=== PATIENT | female | born 1955 | race Caucasian/White ===

== ENCOUNTER 2020-12-30 23:52 | Emergency (ER) | payer BC ==
[~2020-12-30] VITALS: Ht 162.6 cm; Wt 225.0 kg
[~2020-12-30 23:52] MED LIST: AMLO5TAB4 PO; COR3.125T PO; HYDR-4353 PO; MELA3TAB39 PO; VALS1TAB73 PO
[2020-12-31 00:54] LABS: EOSINOPHILS # (AUTO) 0.4 X10'3 (0-0.9); MONOCYTES # (AUTO) 0.9 X10'3 (0-0.9)
[2020-12-31 00:56] LABS: BASOPHILS # (AUTO) 0.1 X10'3 (0-0.2); BASOPHILS % (AUTO) 1.3 % (0-1); EOSINOPHILS % (AUTO) 3.9 % (0-6); HEMATOCRIT 47.5 % (35.0-45.0); LYMPHOCYTES # (AUTO) 2.2 X10'3 (1.1-4.8); MEAN CORPUSCULAR HGB CONC 33.7 g/dL (33.0-36.5); MEAN PLATELET VOLUME 8.6 FL (7.4-10.4); MONOCYTES % (AUTO) 9.7 % (2-12); NEUTROPHILS # (AUTO) 5.8 X10'3 (1.8-7.7); NEUTROPHILS % (AUTO) 62.1 % (42-75); PLATELET COUNT 206 X10'3 (140-440); RED BLOOD COUNT 5.53 X10'6 (4.20-5.60); RED CELL DISTRIBUTION WIDTH 13.8 % (11.5-14.5); WHITE BLOOD COUNT 9.4 X10'3 (4.5-11.0)
[2020-12-31 01:09] LABS: ALANINE AMINOTRANSFERASE 56 U/L (12-78); ALBUMIN 3.7 G/DL (3.4-5.0); ALBUMIN/GLOBULIN RATIO 0.9 (1.1-1.5); ALKALINE PHOSPHATASE 87 IU/L (46-116); ANION GAP 8 (8-16); ASPARTATE AMINO TRANSFERASE 32 U/L (10-37); BILIRUBIN,TOTAL 0.2 MG/DL (0.1-1.0); BLOOD UREA NITROGEN 22 MG/DL (7-18); BUN/CREATININE RATIO 29.7 (6.6-38.0); CALCIUM 9.4 MG/DL (8.5-10.1); CHLORIDE 104 MMOL/L (99-107); CREATININE 0.74 MG/DL (0.40-0.90); GLUCOSE 140 MG/DL (70-104); POTASSIUM 4.2 MMOL/L (3.5-5.1); SODIUM 140 MMOL/L (135-145); eGFR 79 ML/MIN
--- NOTE | 2020-12-31 01:52 | NUR ---
Per patient's request, her Alireza was contacted with update. [phone].
[2020-12-31] MEDS ORDERED: HYDROcodone/acetaminophen 10/325mg tab PO ONE (02:35)
[2020-12-31] MEDS ORDERED: HYDROmorphone 1 mg/ml syringe IM ONE (03:15)
[2020-12-31 03:45] VITALS: BP_DIAS 134
[2020-12-31] MEDS ORDERED: amLODIPine 5mg tablet PO ONE (04:00)
[2020-12-31 04:05] VITALS: BP_SYST 209
--- NOTE | 2020-12-31 04:05 | NUR ---
Dr. Gonzalez notified of persistent hypertension as charted. MD ordered medication. Importance of follow up w/PMD emphasized with patient.
[2020-12-31] MEDS ORDERED: CARV3.122 PO (11:48)
[2020-12-31] MEDS ORDERED: VALA500T41 PO (11:48)
== END 2020-12-31 04:27 | disposition home or self-care (01) ==
LOC: ER 23:53
DX: R06.4 Hyperventilation (principal); G25.81 Restless legs syndrome; R20.0 Anesthesia of skin; I25.10 Atherosclerotic heart disease of native coronary artery without angina pectoris; I10 Essential (primary) hypertension; I25.2 Old myocardial infarction; G89.29 Other chronic pain; Z98.890 Other specified postprocedural states; Z79.899 Other long term (current) drug therapy
CPT/HCPCS: 70450; 71045; 80053; 83880; 84484; 85025; 93005; 96372; 99285; J1170

== ENCOUNTER 2020-12-31 09:44 | Inpatient (IN) | payer BC ==
[~2020-12-31] VITALS: Ht 162.6 cm; Wt 102.0 kg
[2020-12-31] MEDS ORDERED: iohexol 350MG/ML 100ml bottle IV ONE (10:04)
[2020-12-31] MEDS ORDERED: atorvastatin 20mg tablet PO SCH (10:45)
[2020-12-31] MEDS ORDERED: aspirin 81mg tab.chew PO ONE (10:45)
[2020-12-31] MEDS ORDERED: clopidogrel 300mg tablet PO ONE (10:45)
[2020-12-31] MEDS ORDERED: HYDROcodone/acetaminophen 10/325mg tab PO ONE (11:30)
[2020-12-31] MEDS ORDERED: potassium Cl 40MEQ/1/2NS 520ml 520 ML IV PRN ×2 (11:35)
[2020-12-31] MEDS ORDERED: potassium Cl 20 mEq SR tablet PO PRN ×2 (11:35)
[2020-12-31] MEDS ORDERED: magnesium 2GM in 50ml NS 50 ML IV PRN (11:35)
[2020-12-31] MEDS ORDERED: HYDROcodone/acetaminophen 5mg/325mg tablet PO PRN (11:35)
[2020-12-31] MEDS ORDERED: acetaminophen 325mg tablet PO PRN ×2 (11:35)
[2020-12-31] MEDS ORDERED: mag hydrox/Alum hydrox/simeth 30ml oral suspension PO PRN (11:35)
[2020-12-31] MEDS ORDERED: magnesium 4gm in 100ml NS 100 ML IV PRN (11:35)
[2020-12-31] MEDS ORDERED: magnesium hydroxide 30ml (MOM) UD suspension PO PRN (11:35)
[2020-12-31] MEDS ORDERED: CARV3.122 PO (11:48)
[2020-12-31] MEDS ORDERED: VALA500T41 PO (11:48)
--- NOTE | 2020-12-31 12:49 | NUR ---
ECHO IN ROOM FOR EXAM
--- NOTE | 2020-12-31 13:36 | NUR ---
PAGER ID: [phone] MESSAGE: [id number] [facility] SAW [facility] ORDER FOR PERMISSIVE HTN, BUT BP HAS BEEN 245/131 AND 239/121
[2020-12-31] MEDS ORDERED: carVEDilol 3.125mg tablet PO ONE (13:40)
[2020-12-31] MEDS: HYDROcodone/acetaminophen 10/325mg tab PO PRN ×3 (15:00→23:09)
[2020-12-31 16:25] VITALS: BP 186/115
--- NOTE | 2020-12-31 16:25 | NUR ---
Pt transferred from ER to 3018b via gurney to bed. Pt awake and alert. VSS. Pt reported chronic back pain as well as acute arm and leg weakness/heaviness bilaterally. Neuro exam completed and WNL. [place] recently given for pain in ER.
[2020-12-31] MEDS ORDERED: morphine 2 MG/ML inj. syringe IV PRN (17:35)
[2020-12-31] MEDS: morphine 2 MG/ML inj. syringe IV PRN (17:54)
[2020-12-31 18:00] VITALS: BP 195/135
[2020-12-31] MEDS: ondansetron/PF 4mg/2ml inj IV PRN (19:46)
[2020-12-31 20:00] VITALS: BP 195/135
[2020-12-31] MEDS: K and/or MAG REPLACEMENT MC SCH (20:00)
[2020-12-31] MEDS: LIDOcaine 5% patch TP SCH (21:38)
[2020-12-31 22:00] VITALS: BP 223/115
--- NOTE | 2020-12-31 22:34 | NUR ---
PAGER ID: [phone] MESSAGE: [id number] , MICHELLE TONY BP 230/150 MANUAL BP MEDICATIONS FOR HTN ARE COREG 3.125MG , NOTHING PRN PATIENT HERE FOR A STROKE R/O BAL HIDALGO 3618
[2020-12-31 22:35] VITALS: BP 230/150
[2020-12-31] MEDS: cloNIDine 0.1 mg tablet PO PRN (23:09)
[2021-01-01] VITALS (9 sets, daily range): BP systolic 176–225; BP diastolic 85–121
[2021-01-01] MEDS: ondansetron/PF 4mg/2ml inj IV PRN ×2 (01:42→19:55)
[2021-01-01] MEDS: morphine 2 MG/ML inj. syringe IV PRN ×3 (01:42→19:55)
[2021-01-01] MEDS: cloNIDine 0.1 mg tablet PO PRN (02:55)
[2021-01-01] MEDS: HYDROcodone/acetaminophen 10/325mg tab PO PRN ×2 (04:13→08:13)
--- NOTE | 2021-01-01 04:50 | NUR ---
PAGER ID: [phone] MESSAGE: [id number] scarlett Platt complaining of 10/10 right lower extremity pain. she is receiving morphine iv 2mg q4h as well as [place] 10mg q4h with no relieve at this time. may I get a one time order for in between thanks Robin khanna .
[2021-01-01 06:41] LABS: BASOPHILS # (AUTO) 0.1 X10'3 (0-0.2); BASOPHILS % (AUTO) 0.7 % (0-1); EOSINOPHILS # (AUTO) 0.2 X10'3 (0-0.9); EOSINOPHILS % (AUTO) 2.3 % (0-6); HEMOGLOBIN 15.9 g/dl (12.0-16.0); LYMPHOCYTES # (AUTO) 1.7 X10'3 (1.1-4.8); MEAN CORPUSCULAR HEMOGLOBIN 29.2 PG (27.0-31.0); MEAN CORPUSCULAR HGB CONC 33.7 g/dL (33.0-36.5); MEAN CORPUSCULAR VOLUME 86.6 FL (78-98); MEAN PLATELET VOLUME 8.5 FL (7.4-10.4); MONOCYTES # (AUTO) 1.2 X10'3 (0-0.9); MONOCYTES % (AUTO) 11.2 % (2-12); NEUTROPHILS # (AUTO) 7.4 X10'3 (1.8-7.7); NEUTROPHILS % (AUTO) 69.8 % (42-75); PLATELET COUNT 214 X10'3 (140-440); RED BLOOD COUNT 5.43 X10'6 (4.20-5.60); RED CELL DISTRIBUTION WIDTH 13.7 % (11.5-14.5); WHITE BLOOD COUNT 10.7 X10'3 (4.5-11.0)
[2021-01-01 06:54] LABS: ALANINE AMINOTRANSFERASE 58 U/L (12-78); ALBUMIN 3.8 G/DL (3.4-5.0); ALBUMIN/GLOBULIN RATIO 0.9 (1.1-1.5); ALKALINE PHOSPHATASE 68 IU/L (46-116); ANION GAP 9 (8-16); ASPARTATE AMINO TRANSFERASE 48 U/L (10-37); BILIRUBIN,TOTAL 0.6 MG/DL (0.1-1.0); BLOOD UREA NITROGEN 21 MG/DL (7-18); BUN/CREATININE RATIO 23.6 (6.6-38.0); CALCIUM 9.6 MG/DL (8.5-10.1); CHLORIDE 101 MMOL/L (99-107); CHOL/HDL RATIO 4.8 (0.00-4.99); CHOLESTEROL 223 MG/DL (0-200); CREATININE 0.89 MG/DL (0.40-0.90); GLUCOSE 143 MG/DL (70-104); HDL CHOLESTEROL 46 MG/DL (35-60); LDL CHOLESTEROL 147 MG/DL (50-100); MAGNESIUM 2.3 MG/DL (1.5-2.4); POTASSIUM 3.8 MMOL/L (3.5-5.1); SODIUM 137 MMOL/L (135-145); TOTAL PROTEIN 7.9 G/DL (6.4-8.2); TRIGLYCERIDES 140 MG/DL (20-135); eGFR 64 ML/MIN
[2021-01-01] MEDS: atorvastatin 20mg tablet PO SCH (07:43)
[2021-01-01] MEDS: clopidogrel 75mg tablet PO SCH (07:43)
[2021-01-01] MEDS: aspirin 81mg tablet.DR PO SCH (07:43)
[2021-01-01] MEDS: valacyclovir 500mg tablet PO SCH (08:00)
[2021-01-01] MEDS: K and/or MAG REPLACEMENT MC SCH ×2 (08:00→19:57)
[2021-01-01] MEDS ORDERED: LORazepam 2 mg/ml vial IV ONE (09:35)
[2021-01-01] MEDS ORDERED: oxyCODONE/APAP 5-325mg tablet PO PRN (09:35)
--- NOTE | 2021-01-01 11:29 | NUR ---
patient was taking nap after mri, patient seems to have sleurred speech and right facial droop and increased waekness on the right side right when she wakes up.
[2021-01-01] MEDS: oxyCODONE/APAP 10/325mg tablet PO PRN ×3 (14:24→22:28)
--- NOTE | 2021-01-01 18:20 | NUR ---
Problems reprioritized. Patient report given, questions answered & plan of care reviewed with Devin HIDALGO.
[2021-01-01] MEDS: LIDOcaine 5% patch TP SCH (19:56)
[2021-01-02] MEDS: morphine 2 MG/ML inj. syringe IV PRN ×3 (00:13→22:52)
[2021-01-02 02:00] VITALS: BP 175/100
[2021-01-02] MEDS: oxyCODONE/APAP 10/325mg tablet PO PRN ×3 (02:24→14:42)
[2021-01-02 06:00] VITALS: BP 178/106
[2021-01-02 06:39] LABS: BASOPHILS # (AUTO) 0.1 X10'3 (0-0.2); BASOPHILS % (AUTO) 0.9 % (0-1); EOSINOPHILS # (AUTO) 0.2 X10'3 (0-0.9); EOSINOPHILS % (AUTO) 2.5 % (0-6); HEMATOCRIT 44.9 % (35.0-45.0); HEMOGLOBIN 15.3 g/dl (12.0-16.0); LYMPHOCYTES # (AUTO) 2.2 X10'3 (1.1-4.8); LYMPHOCYTES % (AUTO) 23.7 % (21-51); MEAN CORPUSCULAR HEMOGLOBIN 29.2 PG (27.0-31.0); MEAN CORPUSCULAR VOLUME 85.9 FL (78-98); MEAN PLATELET VOLUME 8.5 FL (7.4-10.4); MONOCYTES # (AUTO) 1.1 X10'3 (0-0.9); MONOCYTES % (AUTO) 11.8 % (2-12); NEUTROPHILS # (AUTO) 5.6 X10'3 (1.8-7.7); NEUTROPHILS % (AUTO) 61.1 % (42-75); PLATELET COUNT 204 X10'3 (140-440); RED BLOOD COUNT 5.23 X10'6 (4.20-5.60); RED CELL DISTRIBUTION WIDTH 13.5 % (11.5-14.5); WHITE BLOOD COUNT 9.2 X10'3 (4.5-11.0)
--- NOTE | 2021-01-02 06:46 | NUR ---
Patient in room PCU 3018. I have received report from Devin HIDALGO and had the opportunity to ask questions and assume patient care.
[2021-01-02 06:55] LABS: ALANINE AMINOTRANSFERASE 61 U/L (12-78); ALBUMIN 3.6 G/DL (3.4-5.0); ALBUMIN/GLOBULIN RATIO 0.9 (1.1-1.5); ALKALINE PHOSPHATASE 70 IU/L (46-116); ANION GAP 8 (8-16); ASPARTATE AMINO TRANSFERASE 45 U/L (10-37); BILIRUBIN,TOTAL 0.5 MG/DL (0.1-1.0); BLOOD UREA NITROGEN 24 MG/DL (7-18); BUN/CREATININE RATIO 22.4 (6.6-38.0); CALCIUM 9.8 MG/DL (8.5-10.1); CHLORIDE 103 MMOL/L (99-107); CREATININE 1.07 MG/DL (0.40-0.90); GLUCOSE 118 MG/DL (70-104); MAGNESIUM 2.4 MG/DL (1.5-2.4); POTASSIUM 4.2 MMOL/L (3.5-5.1); SODIUM 138 MMOL/L (135-145); TOTAL CARBON DIOXIDE 27.3 MMOL/L (24-32); TOTAL PROTEIN 7.6 G/DL (6.4-8.2); eGFR 52 ML/MIN
[2021-01-02] MEDS: clopidogrel 75mg tablet PO SCH (07:29)
[2021-01-02] MEDS: aspirin 81mg tablet.DR PO SCH (07:30)
[2021-01-02] MEDS: atorvastatin 20mg tablet PO SCH (07:30)
[2021-01-02] MEDS: valacyclovir 500mg tablet PO SCH (07:31)
[2021-01-02] MEDS: LIDOcaine 5% patch TP SCH ×2 (07:33→07:56)
[2021-01-02] MEDS: HYDROmorphone inj. 0.5 MG/0.5 ML DISP.SYRIN IV PRN ×4 (07:57→20:51)
[2021-01-02] MEDS: K and/or MAG REPLACEMENT MC SCH ×2 (08:00→20:00)
[2021-01-02 11:40] VITALS: BP 184/99
[2021-01-02 15:00] VITALS: BP 192/84
[2021-01-02 18:00] VITALS: BP 184/111
[2021-01-02] MEDS: ondansetron/PF 4mg/2ml inj IV PRN (19:15)
[2021-01-02 22:00] VITALS: BP 185/107
[2021-01-03] MEDS: HYDROmorphone inj. 0.5 MG/0.5 ML DISP.SYRIN IV PRN ×3 (00:47→10:29)
[2021-01-03] MEDS: ondansetron/PF 4mg/2ml inj IV PRN (00:47)
[2021-01-03 02:00] VITALS: BP 148/77
[2021-01-03] MEDS: oxyCODONE/APAP 10/325mg tablet PO PRN ×2 (03:30→07:44)
[2021-01-03 06:00] VITALS: BP 132/69
[2021-01-03] MEDS: valacyclovir 500mg tablet PO SCH (07:39)
[2021-01-03] MEDS: aspirin 81mg tablet.DR PO SCH (07:39)
[2021-01-03] MEDS: atorvastatin 20mg tablet PO SCH (07:39)
[2021-01-03] MEDS: clopidogrel 75mg tablet PO SCH (07:40)
[2021-01-03] MEDS: K and/or MAG REPLACEMENT MC SCH ×2 (08:00→19:17)
[2021-01-03 08:06] LABS: BASOPHILS # (AUTO) 0.1 X10'3 (0-0.2); BASOPHILS % (AUTO) 0.8 % (0-1); EOSINOPHILS # (AUTO) 0.1 X10'3 (0-0.9); EOSINOPHILS % (AUTO) 1.3 % (0-6); HEMATOCRIT 47.9 % (35.0-45.0); LYMPHOCYTES # (AUTO) 1.9 X10'3 (1.1-4.8); LYMPHOCYTES % (AUTO) 18.4 % (21-51); MEAN CORPUSCULAR HEMOGLOBIN 29.4 PG (27.0-31.0); MEAN CORPUSCULAR HGB CONC 33.3 g/dL (33.0-36.5); MEAN CORPUSCULAR VOLUME 88.2 FL (78-98); MEAN PLATELET VOLUME 8.9 FL (7.4-10.4); MONOCYTES # (AUTO) 1.2 X10'3 (0-0.9); MONOCYTES % (AUTO) 11.2 % (2-12); NEUTROPHILS # (AUTO) 7.1 X10'3 (1.8-7.7); NEUTROPHILS % (AUTO) 68.3 % (42-75); PLATELET COUNT 202 X10'3 (140-440); RED BLOOD COUNT 5.43 X10'6 (4.20-5.60); RED CELL DISTRIBUTION WIDTH 13.9 % (11.5-14.5); WHITE BLOOD COUNT 10.4 X10'3 (4.5-11.0)
[2021-01-03 08:30] LABS: ALANINE AMINOTRANSFERASE 65 U/L (12-78); ALBUMIN 3.7 G/DL (3.4-5.0); ALBUMIN/GLOBULIN RATIO 0.9 (1.1-1.5); ALKALINE PHOSPHATASE 72 IU/L (46-116); ANION GAP 10 (8-16); ASPARTATE AMINO TRANSFERASE 52 U/L (10-37); BILIRUBIN,TOTAL 0.5 MG/DL (0.1-1.0); BLOOD UREA NITROGEN 26 MG/DL (7-18); BUN/CREATININE RATIO 33.8 (6.6-38.0); CALCIUM 9.9 MG/DL (8.5-10.1); CHLORIDE 103 MMOL/L (99-107); CREATININE 0.77 MG/DL (0.40-0.90); GLUCOSE 108 MG/DL (70-104); MAGNESIUM 2.3 MG/DL (1.5-2.4); POTASSIUM 4.2 MMOL/L (3.5-5.1); SODIUM 140 MMOL/L (135-145); TOTAL CARBON DIOXIDE 27.1 MMOL/L (24-32); TOTAL PROTEIN 7.9 G/DL (6.4-8.2); eGFR 75 ML/MIN
--- NOTE | 2021-01-03 10:53 | NUR ---
PAGER ID: [phone] MESSAGE: [id number] Layo Richards Can we increase her percocet 2x 10mg q6hr and get rid of her IV dilaudid . Pt is now taking it by clock when its available not because she hurts . #[phone] Alicja (177 character message out of a maximum of 240) CLOSE [X] SEND ANOTHER PAGE
[2021-01-03 11:00] VITALS: BP 173/74
[2021-01-03] MEDS ORDERED: oxyCODONE IR 5mg (immed. release) tablet PO PRN (11:35)
--- NOTE | 2021-01-03 12:54 | NUR ---
Spoke with patients primary care Dr Posada guest relations receptionist Tiffanie at length about treatment and plan of care. Tiffanie said she was going to call her who she takes care of and give him an update. Patients phone is working so she can call these family members also.
--- NOTE | 2021-01-03 13:48 | NUR ---
promotional table spacer PAGER ID: [phone] MESSAGE: [id number], Giulia. Daughter is able to answer phone at this time, said voicemail was broke up and couldn't hear you. [phone] Thanks Aury
[2021-01-03] MEDS: baclofen 10mg tablet PO PRN (16:49)
[2021-01-03 17:14] VITALS: BP 123/71
[2021-01-03 18:00] VITALS: BP 223/119
[2021-01-03] MEDS: oxyCODONE IR 5mg (immed. release) tablet PO PRN ×2 (18:07→23:53)
--- NOTE | 2021-01-03 18:22 | NUR ---
Problems reprioritized. Patient report given, questions answered & plan of care reviewed with Sofia HIDALGO.
[2021-01-03] MEDS: cloNIDine 0.1 mg tablet PO PRN (18:58)
[2021-01-03] MEDS: carVEDilol 3.125mg tablet PO SCH (19:35)
[2021-01-03 22:00] VITALS: BP 149/83
[2021-01-04 02:00] VITALS: BP 150/97
--- NOTE | 2021-01-04 02:40 | NUR ---
Patient in room PCU 3018. I have received report from Sofia HIDALGO and had the opportunity to ask questions and assume patient care. I agree with all documentation that Sofia HIDALGO has made.
--- NOTE | 2021-01-04 02:46 | NUR ---
Report given to Felicita HIDALGO.
[2021-01-04] MEDS: oxyCODONE IR 5mg (immed. release) tablet PO PRN ×4 (04:36→20:37)
[2021-01-04 06:00] VITALS: BP 171/85
[2021-01-04 06:27] LABS: BASOPHILS # (AUTO) 0.1 X10'3 (0-0.2); BASOPHILS % (AUTO) 1.1 % (0-1); EOSINOPHILS # (AUTO) 0.3 X10'3 (0-0.9); EOSINOPHILS % (AUTO) 3.1 % (0-6); HEMOGLOBIN 16.3 g/dl (12.0-16.0); LYMPHOCYTES # (AUTO) 2.1 X10'3 (1.1-4.8); LYMPHOCYTES % (AUTO) 21.8 % (21-51); MEAN CORPUSCULAR HEMOGLOBIN 28.9 PG (27.0-31.0); MEAN CORPUSCULAR HGB CONC 33.3 g/dL (33.0-36.5); MEAN CORPUSCULAR VOLUME 86.8 FL (78-98); MEAN PLATELET VOLUME 8.6 FL (7.4-10.4); MONOCYTES # (AUTO) 1.1 X10'3 (0-0.9); MONOCYTES % (AUTO) 11.7 % (2-12); NEUTROPHILS # (AUTO) 5.9 X10'3 (1.8-7.7); NEUTROPHILS % (AUTO) 62.3 % (42-75); PLATELET COUNT 217 X10'3 (140-440); RED BLOOD COUNT 5.65 X10'6 (4.20-5.60); RED CELL DISTRIBUTION WIDTH 13.7 % (11.5-14.5); WHITE BLOOD COUNT 9.4 X10'3 (4.5-11.0)
--- NOTE | 2021-01-04 06:37 | NUR ---
Problems reprioritized. Patient report given, questions answered & plan of care reviewed with Reagan HIDALGO.
[2021-01-04 06:48] LABS: ALANINE AMINOTRANSFERASE 70 U/L (12-78); ALBUMIN 3.9 G/DL (3.4-5.0); ALKALINE PHOSPHATASE 79 IU/L (46-116); ANION GAP 9 (8-16); ASPARTATE AMINO TRANSFERASE 52 U/L (10-37); BILIRUBIN,TOTAL 0.6 MG/DL (0.1-1.0); BLOOD UREA NITROGEN 27 MG/DL (7-18); BUN/CREATININE RATIO 30.7 (6.6-38.0); CALCIUM 9.7 MG/DL (8.5-10.1); CHLORIDE 102 MMOL/L (99-107); CREATININE 0.88 MG/DL (0.40-0.90); GLUCOSE 113 MG/DL (70-104); MAGNESIUM 2.3 MG/DL (1.5-2.4); POTASSIUM 4.1 MMOL/L (3.5-5.1); SODIUM 140 MMOL/L (135-145); TOTAL CARBON DIOXIDE 29.5 MMOL/L (24-32); eGFR 65 ML/MIN
[2021-01-04] MEDS: K and/or MAG REPLACEMENT MC SCH ×2 (08:00→20:00)
[2021-01-04] MEDS: clopidogrel 75mg tablet PO SCH (08:57)
[2021-01-04] MEDS: valacyclovir 500mg tablet PO SCH (08:57)
[2021-01-04] MEDS: aspirin 81mg tablet.DR PO SCH (08:57)
[2021-01-04] MEDS: atorvastatin 20mg tablet PO SCH (08:57)
[2021-01-04] MEDS: carVEDilol 3.125mg tablet PO SCH ×2 (08:57→20:37)
[2021-01-04] MEDS: LIDOcaine 5% patch TP SCH (08:57)
[2021-01-04] MEDS: ondansetron/PF 4mg/2ml inj IV PRN (08:58)
[2021-01-04] MEDS: cloNIDine 0.1 mg tablet PO PRN (08:58)
[2021-01-04 11:00] VITALS: BP 181/100
--- NOTE | 2021-01-04 13:25 | NUR ---
Initial: Pt admit DX acute CVA w/ R side weakness currently improving, hypertensive emergency r/t CVA, and hyperlipidemia per DO note. TG 140, Cholesterol 223, and LDL 147 on admit receiving lipitor as well as heart healthy diet. PO improving to 50% avg meals up to 100% two meals from initial refusals. Advanced to heart healthy/thin diet per [facility] NURSE/DO recs. Will send soft to chew foods/chopped meats given R side weakness for ease of PO; dietary notified. Noted LBM 12/31 and receiving PRN oxycodone; would benefit from routine bowel care this admit if MD agreeable. Will continue to monitor for PO tolerance and additional protein/kcal needs this admit. Rec: 1. continue heart healthy/thin diet per [facility] NURSE/DO; soft to chew foods/chopped meats for ease of PO w/ R side weakness 2. monitor for ONS needs if PO declines 3. routine bowel care; 4 days constipation receiving PRN oxycodone 4. scaled wt this admit Addendum: 01/04/21 at [address] Amended: Links added.
[2021-01-04 15:00] VITALS: BP 173/97
[2021-01-04] MEDS ORDERED: amLODIPine 5mg tablet PO ONE (18:45)
[2021-01-04 20:30] VITALS: BP 180/83
[2021-01-04 22:00] VITALS: BP 128/70
--- NOTE | 2021-01-05 00:54 | NUR ---
Student documentation: I have reviewed and agree with all interventions, assessments performed and documented by Carolina FUENTES. Student Medication Administration: For this medication-pass time frame, all medication were reviewed, dispensed, administered and documented per hospital policy by Carolina FUENTES.
[2021-01-05] MEDS: oxyCODONE IR 5mg (immed. release) tablet PO PRN ×6 (01:11→23:35)
[2021-01-05 02:00] VITALS: BP 175/105
[2021-01-05 06:00] VITALS: BP 151/74
--- NOTE | 2021-01-05 06:27 | NUR ---
Report given to Kathy HIDALGO.
--- NOTE | 2021-01-05 06:39 | NUR ---
Patient in room PCU 3018. I have received report from Amna Black and had the opportunity to ask questions and assume patient care.
[2021-01-05 06:51] LABS: BASOPHILS # (AUTO) 0.1 X10'3 (0-0.2); EOSINOPHILS # (AUTO) 0.5 X10'3 (0-0.9); EOSINOPHILS % (AUTO) 4.7 % (0-6); HEMATOCRIT 45.1 % (35.0-45.0); HEMOGLOBIN 15.1 g/dl (12.0-16.0); LYMPHOCYTES # (AUTO) 2.1 X10'3 (1.1-4.8); LYMPHOCYTES % (AUTO) 20.7 % (21-51); MEAN CORPUSCULAR HEMOGLOBIN 29.1 PG (27.0-31.0); MEAN CORPUSCULAR HGB CONC 33.5 g/dL (33.0-36.5); MEAN CORPUSCULAR VOLUME 86.9 FL (78-98); MEAN PLATELET VOLUME 8.7 FL (7.4-10.4); MONOCYTES # (AUTO) 1.4 X10'3 (0-0.9); MONOCYTES % (AUTO) 13.5 % (2-12); NEUTROPHILS # (AUTO) 6.2 X10'3 (1.8-7.7); NEUTROPHILS % (AUTO) 60.1 % (42-75); PLATELET COUNT 199 X10'3 (140-440); RED BLOOD COUNT 5.19 X10'6 (4.20-5.60); RED CELL DISTRIBUTION WIDTH 13.4 % (11.5-14.5); WHITE BLOOD COUNT 10.3 X10'3 (4.5-11.0)
[2021-01-05 07:12] LABS: ALANINE AMINOTRANSFERASE 66 U/L (12-78); ALBUMIN 3.4 G/DL (3.4-5.0); ALBUMIN/GLOBULIN RATIO 0.9 (1.1-1.5); ALKALINE PHOSPHATASE 70 IU/L (46-116); ANION GAP 7 (8-16); ASPARTATE AMINO TRANSFERASE 47 U/L (10-37); BILIRUBIN,TOTAL 0.4 MG/DL (0.1-1.0); BLOOD UREA NITROGEN 30 MG/DL (7-18); BUN/CREATININE RATIO 34.1 (6.6-38.0); CHLORIDE 102 MMOL/L (99-107); CREATININE 0.88 MG/DL (0.40-0.90); GLUCOSE 101 MG/DL (70-104); MAGNESIUM 2.4 MG/DL (1.5-2.4); POTASSIUM 4.1 MMOL/L (3.5-5.1); SODIUM 138 MMOL/L (135-145); TOTAL CARBON DIOXIDE 29.3 MMOL/L (24-32); TOTAL PROTEIN 7.1 G/DL (6.4-8.2); eGFR 65 ML/MIN
[2021-01-05] MEDS: valacyclovir 500mg tablet PO SCH (08:00)
[2021-01-05] MEDS: K and/or MAG REPLACEMENT MC SCH ×2 (08:00→18:51)
[2021-01-05] MEDS: LIDOcaine 5% patch TP SCH (08:00)
[2021-01-05] MEDS: atorvastatin 20mg tablet PO SCH (08:13)
[2021-01-05] MEDS: clopidogrel 75mg tablet PO SCH (08:13)
[2021-01-05] MEDS: aspirin 81mg tablet.DR PO SCH (08:13)
[2021-01-05] MEDS: amLODIPine 5mg tablet PO SCH (08:14)
[2021-01-05] MEDS: carVEDilol 3.125mg tablet PO SCH ×2 (08:19→19:37)
[2021-01-05 11:00] VITALS: BP 151/88
[2021-01-05 15:00] VITALS: BP 166/81
--- NOTE | 2021-01-05 15:00 | NUR ---
Jamel Consult: Jamel Camacho; skin intact per EMR. Addendum: 01/05/21 at [address] Amended: Links added.
[2021-01-05 18:00] VITALS: BP 143/92
--- NOTE | 2021-01-05 18:34 | NUR ---
Problems reprioritized. Patient report given, questions answered & plan of care reviewed with GWEN Anderson.
[2021-01-05 22:00] VITALS: BP 157/72
[2021-01-06] MEDS: oxyCODONE IR 5mg (immed. release) tablet PO PRN ×3 (04:42→13:28)
--- NOTE | 2021-01-06 06:11 | NUR ---
Problems reprioritized. Patient report given, questions answered & plan of care reviewed with GWEN French.
--- NOTE | 2021-01-06 06:15 | NUR ---
Patient in room PCU 3018. I have received report from GWEN Anderson and had the opportunity to ask questions and assume patient care.
[2021-01-06 07:00] VITALS: BP 148/74
--- NOTE | 2021-01-06 07:01 | NUR ---
Documented Oxy IR not done to due not being the primary nurse at this time of reassessment.
[2021-01-06] MEDS: LIDOcaine 5% patch TP SCH (08:00)
[2021-01-06] MEDS: K and/or MAG REPLACEMENT MC SCH (08:00)
[2021-01-06] MEDS: carVEDilol 3.125mg tablet PO SCH (09:24)
[2021-01-06] MEDS: aspirin 81mg tablet.DR PO SCH (09:24)
[2021-01-06] MEDS: amLODIPine 5mg tablet PO SCH (09:25)
[2021-01-06] MEDS: clopidogrel 75mg tablet PO SCH (09:26)
[2021-01-06] MEDS: atorvastatin 20mg tablet PO SCH (09:26)
[2021-01-06] MEDS ORDERED: docusate sod 100mg capsule PO SCH (11:05)
[2021-01-06] MEDS: baclofen 10mg tablet PO PRN (12:01)
--- NOTE | 2021-01-06 12:58 | NUR ---
Per primary nurse, patient leaving today to [facility] No issues or concerns for wound care at this time.
[2021-01-06 13:21] VITALS: BP 142/74
--- NOTE | 2021-01-06 14:00 | NUR ---
[place] documentation: I have reviewed and agree with all interventions, assessments performed and documented by GWEN Estevez.
--- NOTE | 2021-01-06 14:05 | NUR ---
Patient stable for transfer to [facility] per MD orders. All belongings were collected and sent with patient and [facility] personnel. PIV discontinued, cannula intact. Tele discontinued, telemetry rn notified. Called report to SHANI Sanchez at [facility]. Dalton Ornelas picked pt up and transferred to [facility].
--- NOTE | 2021-01-06 14:28 | NUR ---
[place] Medication Administration: For this medication-pass time frame, all medication were reviewed, dispensed, administered and documented per hospital policy by GWEN Estevez.
== END 2021-01-06 14:03 | DRG 65 ==
LOC: ER 09:44 → ED HOLD 11:34 → PCU 3S 16:33
PROVIDERS: ADMIT Family Medicine; ATTEND Family Medicine
PROC: B3251ZZ Computerized Tomography (CT Scan) of Bilateral Common Carotid Arteries using Low Osmolar Contrast (ICD-10-PCS; principal; 2020-12-31)
PROC: B32G1ZZ Computerized Tomography (CT Scan) of Bilateral Vertebral Arteries using Low Osmolar Contrast (ICD-10-PCS; 2020-12-31)
PROC: B3281ZZ Computerized Tomography (CT Scan) of Bilateral Internal Carotid Arteries using Low Osmolar Contrast (ICD-10-PCS; 2020-12-31)
DX: I63.81 Other cerebral infarction due to occlusion or stenosis of small artery (principal); G81.91 Hemiplegia, unspecified affecting right dominant side; I16.1 Hypertensive emergency; F41.9 Anxiety disorder, unspecified; G25.81 Restless legs syndrome; I10 Essential (primary) hypertension; M21.371 Foot drop, right foot; G89.29 Other chronic pain; E78.5 Hyperlipidemia, unspecified; M54.9 Dorsalgia, unspecified; Z20.822 Contact with and (suspected) exposure to COVID-19; I25.10 Atherosclerotic heart disease of native coronary artery without angina pectoris; I25.2 Old myocardial infarction; Z79.02 Long term (current) use of antithrombotics/antiplatelets; Z79.82 Long term (current) use of aspirin; Z95.1 Presence of aortocoronary bypass graft; Z95.5 Presence of coronary angioplasty implant and graft; Z79.899 Other long term (current) drug therapy
CPT/HCPCS: 36415; 70450; 70496; 70498; 70551; 80053; 80061; 82948; 83036; 83735; 85025; 87081; 87426; 92507; 92508; 92616; 93306; 93308; 97110; 97112; 97163; 97530; 99285; G0378; J1170; J2060; J2270; J2405; Q9967

== ENCOUNTER 2021-01-30 19:23 | Emergency (ER) | payer MEDICARE, OTHER ==
[~2021-01-30] VITALS: Ht 160 cm; Wt 104.5 kg
[~2021-01-30 19:23] MED LIST changes: -AMLO5TAB4 PO; +CARV3.122 PO; -COR3.125T PO; -MELA3TAB39 PO; +VALA500T41 PO; -VALS1TAB73 PO
--- NOTE | 2021-01-30 19:54 | NUR ---
Patient to CT on [facility]
[2021-01-30 21:16] VITALS: BP 186/97
--- NOTE | 2021-01-30 21:29 | NUR ---
Kacie kevin for transportation back to [facility].
== END 2021-01-30 22:22 | disposition home or self-care (01) ==
LOC: ER 19:23
DX: S01.111A Laceration without foreign body of right eyelid and periocular area, initial encounter (principal); I10 Essential (primary) hypertension; I25.10 Atherosclerotic heart disease of native coronary artery without angina pectoris; I25.2 Old myocardial infarction; G89.29 Other chronic pain; Z95.5 Presence of coronary angioplasty implant and graft; Z98.890 Other specified postprocedural states; Z79.899 Other long term (current) drug therapy; Z79.01 Long term (current) use of anticoagulants; W01.198A Fall on same level from slipping, tripping and stumbling with subsequent striking against other object, initial encounter; Z91.81 History of falling; Y93.89 Activity, other specified; Y92.89 Other specified places as the place of occurrence of the external cause; Y99.8 Other external cause status
CPT/HCPCS: 12013; 70450; 72125; 99285

== ENCOUNTER 2021-10-10 22:19 | Emergency (ER) | payer MEDICARE, OTHER ==
[~2021-10-10] VITALS: Ht 160 cm; Wt 86.4 kg
[2021-10-10 22:42] VITALS: BP 164/92
[2021-10-10] MEDS: baclofen 10mg tablet PO STA (22:53)
[2021-10-10] MEDS: oxyCODONE SR 10mg (sust. release) tab PO ONE (22:53)
[2021-10-10 23:01] LABS: BASOPHILS # (AUTO) 0.1 X10'3 (0-0.2); EOSINOPHILS # (AUTO) 0.3 X10'3 (0-0.9); EOSINOPHILS % (AUTO) 2.8 % (0-6); HEMOGLOBIN 14.5 g/dl (12.0-16.0); LYMPHOCYTES % (AUTO) 16.1 % (21-51); MEAN CORPUSCULAR HEMOGLOBIN 29.5 PG (27.0-31.0); MEAN CORPUSCULAR HGB CONC 34.6 g/dL (33.0-36.5); MEAN CORPUSCULAR VOLUME 85.2 FL (78-98); MEAN PLATELET VOLUME 8.1 FL (7.4-10.4); MONOCYTES # (AUTO) 1.1 X10'3 (0-0.9); MONOCYTES % (AUTO) 8.5 % (2-12); NEUTROPHILS # (AUTO) 8.9 X10'3 (1.8-7.7); NEUTROPHILS % (AUTO) 71.6 % (42-75); PLATELET COUNT 243 X10'3 (140-440); RED BLOOD COUNT 4.93 X10'6 (4.20-5.60); RED CELL DISTRIBUTION WIDTH 13.2 % (11.5-14.5); WHITE BLOOD COUNT 12.5 X10'3 (4.5-11.0)
[2021-10-10] MEDS: normal saline 1000ML IV soln IVB ONE (23:11)
[2021-10-10] MEDS: magnesium 2GM in 50ml NS 50 ML IV ONE (23:12)
[2021-10-10 23:13] LABS: ALANINE AMINOTRANSFERASE 33 U/L (12-78); ALBUMIN 3.7 G/DL (3.4-5.0); ALBUMIN/GLOBULIN RATIO 0.9 (1.1-1.5); ALKALINE PHOSPHATASE 85 IU/L (46-116); ANION GAP 10 (8-16); ASPARTATE AMINO TRANSFERASE 21 U/L (10-37); BILIRUBIN,TOTAL 0.3 MG/DL (0.1-1.0); BLOOD UREA NITROGEN 24 MG/DL (7-18); BUN/CREATININE RATIO 27.9 (6.6-38.0); CALCIUM 9.6 MG/DL (8.5-10.1); CHLORIDE 107 MMOL/L (99-107); CREATININE 0.86 MG/DL (0.40-0.90); GLUCOSE 125 MG/DL (70-104); POTASSIUM 4.4 MMOL/L (3.5-5.1); SODIUM 142 MMOL/L (135-145); TOTAL CARBON DIOXIDE 25.2 MMOL/L (24-32); TOTAL PROTEIN 7.8 G/DL (6.4-8.2); eGFR 66 ML/MIN
[2021-10-11] MEDS: LORazepam 2 mg/ml vial IV ONE (00:33)
== END 2021-10-11 04:20 | disposition home or self-care (01) ==
LOC: ER 22:19
DX: F11.23 Opioid dependence with withdrawal (principal); M62.838 Other muscle spasm; R53.1 Weakness; R45.1 Restlessness and agitation; I25.10 Atherosclerotic heart disease of native coronary artery without angina pectoris; I10 Essential (primary) hypertension; I25.2 Old myocardial infarction; G89.29 Other chronic pain; Z86.73 Personal history of transient ischemic attack (TIA), and cerebral infarction without residual deficits; Z98.890 Other specified postprocedural states; Z79.2 Long term (current) use of antibiotics; Z79.899 Other long term (current) drug therapy
CPT/HCPCS: 36415; 80053; 85025; 96365; 96366; 96375; 99284; J2060; J3475; J7030; 93005

== ENCOUNTER 2024-03-16 05:55 | Day surgery (SDC) | payer MEDICARE, OTHER ==
[2024-03-13 11:31] LABS: BASOPHILS # (AUTO) 0.1 X10'3 (0-0.2); EOSINOPHILS # (AUTO) 0.4 X10'3 (0-0.9); EOSINOPHILS % (AUTO) 4.2 % (0-6); HEMATOCRIT 46.3 % (35.0-45.0); HEMOGLOBIN 15.2 g/dl (12.0-16.0); LYMPHOCYTES # (AUTO) 1.5 X10'3 (1.1-4.8); LYMPHOCYTES % (AUTO) 18.1 % (21-51); MEAN CORPUSCULAR HGB CONC 32.9 g/dL (33.0-36.5); MEAN CORPUSCULAR VOLUME 85.3 FL (78-98); MEAN PLATELET VOLUME 8.6 FL (7.4-10.4); MONOCYTES # (AUTO) 0.8 X10'3 (0-0.9); MONOCYTES % (AUTO) 9.3 % (2-12); NEUTROPHILS # (AUTO) 5.7 X10'3 (1.8-7.7); NEUTROPHILS % (AUTO) 67.4 % (42-75); PLATELET COUNT 211 X10'3 (140-440); RED BLOOD COUNT 5.44 X10'6 (4.20-5.60); WHITE BLOOD COUNT 8.4 X10'3 (4.5-11.0)
[2024-03-13 11:33] LABS: ALBUMIN 3.5 G/DL (3.4-5.0); ANION GAP 8 (8-16); BLOOD UREA NITROGEN 17 MG/DL (7-18); BUN/CREATININE RATIO 22.7 (10.0-20.0); CALCIUM 9.7 MG/DL (8.5-10.1); CHLORIDE 101 MMOL/L (99-107); CREATININE 0.75 MG/DL (0.40-0.90); GLUCOSE 94 MG/DL (70-104); POTASSIUM 4.2 MMOL/L (3.5-5.1); SODIUM 139 MMOL/L (135-145); TOTAL CARBON DIOXIDE 29.8 MMOL/L (24-32); eGFR 77 ML/MIN
[2024-03-13 11:37] LABS: APTT 29 SECONDS (22-32); PROTHROMBIN TIME 10.9 SECONDS (9.0-12.0)
[2024-03-16] VITALS (15 sets, daily range): BP systolic 130–167; BP diastolic 74–93; PULSE 63–77; RESP 15–16; TEMP 98.4; O2SAT 94–96
[~2024-03-16] VITALS: Ht 160 cm; Wt 103.0 kg
[2024-03-16] MEDS ORDERED: OXYC20TA40 PO (06:29)
[2024-03-16] MEDS ORDERED: ASPI-611 PO (06:29)
[2024-03-16] MEDS ORDERED: ROSU40TA22 PO (06:29)
[2024-03-16] MEDS ORDERED: DOCU-148 PO (06:29)
[2024-03-16] MEDS ORDERED: AMLO5TAB16 PO (06:29)
[2024-03-16] MEDS ORDERED: POLY17PO10 PO (06:29)
[2024-03-16] MEDS ORDERED: CLOP75TA34 PO (06:29)
[2024-03-16] MEDS ORDERED: MULT-1085 PO (06:29)
[2024-03-16] MEDS ORDERED: CARV6.253 PO (06:29)
[2024-03-16] MEDS ORDERED: LISI10TA27 PO (06:29)
[2024-03-16] MEDS ORDERED: GABA-530 PO (06:29)
[2024-03-16] MEDS: diphenhydrAMINE 25mg capsule PO PRN (07:20)
[2024-03-16] MEDS: normal saline 1,000 ML IV SCH (07:20)
[2024-03-16] MEDS: LORazepam 0.5 MG tablet PO PRN (07:20)
[2024-03-16] MEDS ORDERED: LIDOcaine 1% 30ml preserv. free vial ONE (07:42)
[2024-03-16] MEDS ORDERED: heparin 1,000unit/ml 10ml vial 10 ML ONE (07:43)
[2024-03-16] MEDS ORDERED: iohexol 350MG/ML 100ml bottle IV ONE ×2 (07:43→09:26)
[2024-03-16] MEDS ORDERED: fentaNYL/PF 50MCG/1 ML 2ML syringe ONE (07:43)
[2024-03-16] MEDS ORDERED: midazolam 1 mg/ML 2ml injection ONE (07:43)
[2024-03-16] MEDS ORDERED: iohexol 350 MG/ML 50ML vial IV ONE ×2 (07:48→10:00)
[2024-03-16] MEDS ORDERED: nitroGLYCERIN 500mcg/5mL D5W 5 ML IV ONE ×3 (07:54→09:47)
[2024-03-16] MEDS ORDERED: verapamil 2.5 mg/ml inj IV ONE (08:01)
[2024-03-16] MEDS ORDERED: HYDROmorphone 1 mg/ml syringe ONE ×2 (08:50→09:31)
[2024-03-16] MEDS ORDERED: heparin 25,000 UNIT/250ml bag 250 ML IV ONE (09:17)
[2024-03-16] MEDS ORDERED: clopidogrel 300mg tablet ONE (10:02)
[2024-03-16] MEDS ORDERED: aspirin 325mg tablet ONE (10:17)
[2024-03-16] MEDS ORDERED: OXAZEpam 15mg capsule PO PRN (11:00)
[2024-03-16] MEDS ORDERED: HYDROcodone/acetaminophen 10/325mg tab PO PRN (11:00)
[2024-03-16] MEDS ORDERED: HYDROcodone/acetaminophen 5mg/325mg tablet PO PRN (11:00)
[2024-03-16] MEDS: oxyCODONE IR 5mg (immed. release) tablet PO PRN (14:32)
[2024-03-16] MEDS ORDERED: nystatin 15 GM powder TP SCH (20:00)
[2024-03-17] MEDS ORDERED: aspirin 325mg tablet, delayed-release (Ecotrin) PO SCH (08:00)
[2024-03-17] MEDS ORDERED: clopidogrel 75mg tablet PO SCH (08:00)
== END 2024-03-16 16:50 | disposition home or self-care (01) ==
LOC: SSTAY O 05:55
PROVIDERS: ATTEND Internal Medicine Cardiovascular Disease
DX: I25.10 Atherosclerotic heart disease of native coronary artery without angina pectoris (principal); I10 Essential (primary) hypertension; E78.5 Hyperlipidemia, unspecified; E66.9 Obesity, unspecified; Z86.73 Personal history of transient ischemic attack (TIA), and cerebral infarction without residual deficits; Z79.891 Long term (current) use of opiate analgesic; Z79.899 Other long term (current) drug therapy; Z95.1 Presence of aortocoronary bypass graft; Z98.890 Other specified postprocedural states; Z68.41 Body mass index [BMI] 40.0-44.9, adult; Z82.49 Family history of ischemic heart disease and other diseases of the circulatory system
CPT/HCPCS: 36415; 80048; 85025; 85347; 85610; 85730; 92978; 93005; 93459; 93567; 99152; 99153; A6258; C1874; C9600; J1170; J1644; J2250; J3010; J3490; J7030; Q0163; Q9967; 76937; 93458; A6402; C1725; C1751; C1753; C1769; C1894

== ENCOUNTER 2025-05-12 07:20 | Day surgery (SDC) | payer MEDICARE, OTHER ==
[2025-05-11 15:17] LABS: BASOPHILS # (AUTO) 0.1 X10'3 (0-0.2); BASOPHILS % (AUTO) 0.9 % (0-1); EOSINOPHILS # (AUTO) 0.4 X10'3 (0-0.9); EOSINOPHILS % (AUTO) 3.9 % (0-6); HEMATOCRIT 46.3 % (35.0-45.0); HEMOGLOBIN 15.3 g/dl (12.0-16.0); LYMPHOCYTES # (AUTO) 1.4 X10'3 (1.1-4.8); LYMPHOCYTES % (AUTO) 13.8 % (21-51); MEAN CORPUSCULAR HEMOGLOBIN 27.3 PG (27.0-31.0); MEAN CORPUSCULAR HGB CONC 33.1 g/dL (33.0-36.5); MEAN CORPUSCULAR VOLUME 82.4 FL (78-98); MEAN PLATELET VOLUME 8.4 FL (7.4-10.4); MONOCYTES # (AUTO) 0.9 X10'3 (0-0.9); MONOCYTES % (AUTO) 8.5 % (2-12); NEUTROPHILS # (AUTO) 7.5 X10'3 (1.8-7.7); NEUTROPHILS % (AUTO) 72.9 % (42-75); PLATELET COUNT 231 X10'3 (140-440); RED BLOOD COUNT 5.62 X10'6 (4.20-5.60); RED CELL DISTRIBUTION WIDTH 15.2 % (11.5-14.5); WHITE BLOOD COUNT 10.3 X10'3 (4.5-11.0)
[2025-05-11 15:44] LABS: APTT 28 SECONDS (22-32); INR 1.1 INR; PROTHROMBIN TIME 10.9 SECONDS (9.0-12.0)
[2025-05-11 16:07] LABS: ALBUMIN 3.6 G/DL (3.4-5.0); ANION GAP 7 (8-16); BLOOD UREA NITROGEN 21 MG/DL (7-18); CALCIUM 9.5 MG/DL (8.5-10.1); CHLORIDE 102 MMOL/L (99-107); GLUCOSE 110 MG/DL (70-104); SODIUM 140 MMOL/L (135-145); eGFR 83 ML/MIN
[2025-05-11 16:14] LABS: POTASSIUM 4.1 MMOL/L (3.5-5.1)
[2025-05-12] VITALS (15 sets, daily range): BP systolic 77–217; BP diastolic 32–105; PULSE 56–85; RESP 13–23; O2SAT 96–99
[~2025-05-12 07:20] MED LIST changes: +ASPI-611 PO; +BACL10TA2 PO; -CARV3.122 PO; +CARV6.253 PO; +CLOP75TA34 PO; +DOCU-148 PO; +FURO-150 PO; +GABA-530 PO; -HYDR-4353 PO; +LISI10TA27 PO; +MULT-1085 PO; +OXYC20TA40 PO; +POLY17PO10 PO; +POTA-205 PO; +ROSU40TA89 PO; -VALA500T41 PO
--- NOTE | 2025-05-12 07:57 | ELECTROCARDIOGRAPH REPORT ---
[facility] Test Date: 2025-05-12 Test Time: 07:54:50 Pat Name: MICHELLE TONY Department: [facility] Patient ID: [facility]-[id number] Room: Gender: F Mobility Architect: VALERIO : [id number] Requested By: CUATE ALEX Order Number: [id number] Reading MD: Dr. GRACIELA Alex Measurements Intervals [place] Rate: 63 P: 72 VT: 176 QRS: 12 QRSD: 94 T: 49 QT: 405 QTc: 415 Interpretive Statements Sinus rhythm Electronically Signed On 05-12-2025 15:15:[address] GRACIELA Alex Please click the below link to view image of tracing.
[2025-05-12] MEDS ORDERED: AMLO5TAB16 PO (08:09)
[2025-05-12] MEDS ORDERED: PRAM0.129 PO (08:12)
[2025-05-12] MEDS ORDERED: NITR0.4T51 SL (08:12)
[2025-05-12] MEDS ORDERED: verapamil 2.5 mg/ml inj IV ONE (08:51)
[2025-05-12] MEDS ORDERED: fentaNYL/PF 50MCG/1 ML 2ML syringe ONE ×2 (08:51→10:39)
[2025-05-12] MEDS ORDERED: midazolam 1 mg/ML 2ml injection ONE ×2 (08:51→10:36)
[2025-05-12] MEDS ORDERED: LIDOcaine 1% (10mg/ml) 2ml vial ONE (08:51)
[2025-05-12] MEDS ORDERED: heparin 1,000unit/ml 10ml vial 10 ML ONE (08:52)
[2025-05-12] MEDS ORDERED: iohexol 350MG/ML 100ml bottle IV ONE (08:52)
[2025-05-12] MEDS ORDERED: nitroGLYCERIN 500mcg/5mL D5W 5 ML IV ONE (08:52)
[2025-05-12] MEDS ORDERED: iohexol 350 MG/ML 50ML vial IV ONE (08:52)
[2025-05-12] MEDS: normal saline 1,000 ML IV SCH (09:30)
[2025-05-12] MEDS ORDERED: LIDOcaine 1% 30ml preserv. free vial ONE (09:44)
[2025-05-12] MEDS ORDERED: HYDROmorphone 1 mg/ml syringe ONE (10:01)
[2025-05-12] MEDS ORDERED: diphenhydrAMINE 50 mg/ml inj ONE (10:02)
[2025-05-12 11:19] LABS: ISTAT HGB ART 14.3 g/dl (12.0-16.0); ISTAT Hct ART 42 %PCV (35-45); ISTAT O2 SATURATION ARTERIAL 94 % (95-98); ISTAT SOURCE BLNK
[2025-05-12] MEDS ORDERED: HYDROcodone/acetaminophen 5mg/325mg tablet PO PRN ×2 (11:40→12:00)
[2025-05-12] MEDS ORDERED: normal saline 1000ml 1,000 ML IV SCH ×2 (11:40→12:00)
[2025-05-12] MEDS ORDERED: proCHLORperazine 10 MG/2 ml inj IV PRN ×2 (11:40→12:00)
[2025-05-12] MEDS ORDERED: OXAZEpam 15mg capsule PO PRN ×2 (11:40→12:00)
[2025-05-12] MEDS ORDERED: HYDROcodone/acetaminophen 10/325mg tab PO PRN ×2 (11:40→12:00)
[2025-05-12] MEDS ORDERED: ondansetron/PF 4mg/2ml inj IV PRN ×2 (11:40→12:00)
[2025-05-12] MEDS: diphenhydrAMINE 25mg capsule PO PRN (11:42)
[2025-05-12] MEDS: LORazepam 0.5 MG tablet PO PRN (11:42)
[2025-05-12] MEDS: oxyCODONE IR 5mg (immed. release) tablet PO PRN ×2 (11:49→12:11)
[2025-05-12] MEDS ORDERED: nitroGLYCERIN 0.4mg SUBLingual tab SL PRN (11:50)
[2025-05-12] MEDS ORDERED: polyethylene glycol 3350 17gm powd pack PO PRN (11:55)
[2025-05-12] MEDS: hydrALAZINE 20mg/ml inj. IV PRN (12:29)
[2025-05-12] MEDS: baclofen 10mg tablet PO PRN (12:44)
[2025-05-12] MEDS: gabapentin 100mg capsule PO SCH (12:44)
[2025-05-12] MEDS ORDERED: carvedilol 6.25mg tablet PO SCH (20:00)
[2025-05-12] MEDS ORDERED: lisinopril 10 MG tablet PO SCH (20:00)
[2025-05-13] MEDS ORDERED: TYPE IN GENERIC & BRAND NAME OF PATIENT MED STRENGTH & FORM PO SCH (08:00)
[2025-05-13] MEDS ORDERED: amLODIPine 5mg tablet PO SCH (08:00)
[2025-05-13] MEDS ORDERED: multivitamins, therapeutics tablet PO SCH (08:00)
[2025-05-13] MEDS ORDERED: atorvastatin 20mg tablet PO SCH (08:00)
[2025-05-13] MEDS ORDERED: clopidogrel 75mg tablet PO SCH (08:00)
[2025-05-13] MEDS ORDERED: docusate sod 100mg capsule PO SCH (08:00)
--- NOTE | 2025-05-13 09:32 | CARDIOLOGY REPORT ---
DATE OF SERVICE: 05/12/2025 DICTATING PHYSICIAN: GRACIELA Bynum MD CARDIAC CATHETERIZATION GENDER: Female. AGE: 70. BODY SURFACE AREA: 2.08 cm2. HEIGHT: 160 cm. WEIGHT: 107 kg. INDICATION: The patient is a 70-year-old postmenopausal female with obesity, hypertension, hyperlipidemia, CAD status post CABG x 3. The patient apparently had a proximal LAD stent in 1999 and subsequently a month later required CABG x 3. At that time, she got sequential SVG to LAD and diagonal and SVG to OM. The patient did have a mini stroke in 01/08 and the patient did a coronary angiography on 03/16/2024, which showed that all her vein grafts were occluded. Proximal LAD had 80% narrowing, which was stented with 3/30 Resolute [place] stent, did have a focal napkin-ring lesion, which did not dilate. Subsequently, the patient was brought back on 03/26/2024, had intravascular lithotripsy followed by re-expansion of the stent. The stent was re-expanded with a 3.5 mm NC balloon with good results. On 03/27/2024, subsequently re-expanded with 3.5/24 NC balloon after lithotripsy with good results. The patient has been managed medically. Lately, the patient has been with exertional fatigue her myocardial perfusion scan showed distal inferolateral reversible defect. After discussing the risks, benefits and alternative options, the patient prefers to proceed with definitive coronary angiography. Risks, benefits, and alternative options discussed and informed consent obtained. PROCEDURE TECHNIQUE: The patient underwent left heart catheterization from right radial approach with 6-[place]izen [place] right radial sheath. Post-procedure access site hemostasis secured with right radial band. The patient tolerated the procedure well. The patient underwent right heart catheterization from right 6-[place] femoral access. Post-procedure access site hemostasis secured with manual compression. The patient tolerated the procedure well. COMPLICATIONS: None. PROCEDURES DONE: * Ultrasound guided right radial artery visualization and access. * Right heart catheterization. * Left heart catheterization. * LVG. * Coronary cineangiography. * Conscious sedation of 45 minutes. FINDINGS: HEMODYNAMICS: Aortic systolic 176, diastolic 92, mean 126 mmHg. LVEDP of 60 mmHg. No significant gradient aorta across the aortic valve. Right atrial mean 17 mmHg, RV 51/18 mmHg, pulmonary capillary wedge pressure of 26 mmHg, PA pressure of 47/22 mmHg. Aortic oxygen saturation is 94%. Pulmonary artery oxygen saturation 83%. Cardiac output by thermodilution method is 5.4 L/min. Cardiac index was 2.63 L/min/m2. LEFT VENTRICULOGRAM: Overall, left ventricular systolic function is 65% to 70%. CORONARY CINEANGIOGRAPHY: Left main coronary artery is a large caliber vessel arising from the left aortic sinus with mild luminal irregularities. 5-[place]izen [place] catheter. Distal left main has about 20% to 30% narrowing. The stent in the proximal LAD is widely patent, good flow. There is a vein graft connecting the LAD and diagonal. There is about 40% to 50% narrowing distal to the SVG anastomosis. Otherwise, the LAD shows mild luminal irregularities. Diagonal is about 2 mm caliber vessel, perfused by the SVG connecting from the LAD. Proximal portion of the diagonal is occluded. Circumflex artery is a medium caliber vessel arising at the bifurcation of the left main coronary artery, courses through the left AV groove, predominantly it continues as principal obtuse marginal branch. SVG to OM is occluded. Circumflex has areas of 30% narrowing. OM2 is a very small branch. Right coronary artery is a medium to large caliber dominant vessel arising from the right aortic sinus, courses through the right AV groove, ends at the posterior crux by diverting into PDA and a posterolateral branch. Mid portion of 30% distally, 40% narrowing. IMPRESSION: A 70-year-old female with LV ejection fraction of 65% to 70%. LVEDP 16 mmHg with no significant gradient across the aortic valve. Pulmonary capillary wedge 26 mmHg. PA pressure of 47/22 mmHg. Left main 20% to 30% narrowing. Mid LAD after the SVG insertion has 40% to 50% narrowing. Circumflex with 30% narrowing, RCA mid 30%, distal 40% narrowing. Proximal LAD stent widely patent. RECOMMENDATIONS: Recommend aggressive coronary risk factor modification, namely low-fat, low-cholesterol diet, maintaining ideal body weight, keeping LDL less than 70 mg, regular exercise program. GRACIELA Bynum MD TID: [id number] RECEIPT: [id number] ERIK/CARLO/NIKOLAY cc: Primary Medical Doctor, MTDD
[2025-05-13] MEDS ORDERED: aspirin 81mg, enteric-coated 1 TAB TABLET.DR PO SCH (12:04)
== END 2025-05-12 17:45 | disposition home or self-care (01) ==
LOC: SSTAY O 07:20
PROVIDERS: ATTEND Internal Medicine Cardiovascular Disease
DX: R94.39 Abnormal result of other cardiovascular function study (principal); I25.119 Atherosclerotic heart disease of native coronary artery with unspecified angina pectoris; R53.83 Other fatigue; I10 Essential (primary) hypertension; E78.5 Hyperlipidemia, unspecified; E66.9 Obesity, unspecified; Z78.0 Asymptomatic menopausal state; Z95.1 Presence of aortocoronary bypass graft; Z95.5 Presence of coronary angioplasty implant and graft; Z86.73 Personal history of transient ischemic attack (TIA), and cerebral infarction without residual deficits; Z98.890 Other specified postprocedural states; Z79.82 Long term (current) use of aspirin; Z79.899 Other long term (current) drug therapy; Z82.49 Family history of ischemic heart disease and other diseases of the circulatory system
CPT/HCPCS: 36415; 80048; 82803; 85014; 85025; 85610; 85730; 93005; 93460; 99152; 99153; A4314; A6258; A6402; C1725; C1751; C1894; J0360; J1171; J1644; J2003; J2250; J3010; J3490; J7030; Q9967; Z7610; 76937; A6449; J1200